=== PATIENT | male | born 1960 | race Two or more races ===

== ENCOUNTER → 2019-04-26 | Outpatient (CLI) | payer OTHER | END | disposition home or self-care (01) | LOC: SPEC 21:23 | DX: L02.31 Cutaneous abscess of buttock (principal) | CPT/HCPCS: 36415; 80202 ==

== ENCOUNTER → 2019-04-26 | Outpatient (CLI) | payer OTHER ==
[2019-04-26 03:12] LABS: BASO # 0.1 x10^3/uL (0.0-0.2); BASO % 1 % (0-3); EOS # 0.5 x10^3/uL (0.0-0.7); EOS % 5 % (0-3); HEMATOCRIT 42.6 % (39.0-53.0); LYMPH # 2.4 x10^3/uL (1.0-4.8); LYMPH % 24 % (24-48); MEAN CORPUSCULAR HEMOGLOBIN 27 pg (25-35); MEAN CORPUSCULAR HGB CONC 33 g/dL (31-37); MEAN CORPUSCULAR VOLUME 84 fL (79-100); MONO # 0.8 x10^3/uL (0.0-1.1); MONO % 8 % (0-9); NEUT # 6.3 x10^3uL (1.8-7.7); NEUT % 63 % (31-73); PLATELET COUNT 481 x10^3/uL (140-400); RED CELL DISTRIBUTION WIDTH 14.1 % (11.5-14.5)
[2019-04-26 03:18] LABS: ALBUMIN 3.1 g/dL (3.4-5.0); ALBUMIN/GLOBULIN RATIO 0.8 (1.0-1.7); ALK PHOS 133 U/L (46-116); ALT (SGPT) 28 U/L (16-63); BLOOD UREA NITROGEN 18 mg/dL (8-26); BUN/CREATININE RATIO 18 (6-20); CALCIUM 8.8 mg/dL (8.5-10.1); GFR 77.3; GLUCOSE 113 mg/dL (70-99); TOTAL BILIRUBIN 0.3 mg/dL (0.2-1.0)
[2019-04-26 03:19] LABS: ANION GAP 11 (6-14); AST (SGOT) 20 U/L (15-37); CARBON DIOXIDE 25 mmol/L (21-32); CHLORIDE 101 mmol/L (98-107); GAMMA GLUTAMYL TRANSPEPTIDASE 168 U/L (10-85); LACTATE DEHYDROGENASE 167 U/L (85-227); PHOSPHORUS 3.8 mg/dL (2.6-4.7); POTASSIUM 4.5 mmol/L (3.5-5.1); SODIUM 137 mmol/L (136-145); URIC ACID 4.7 mg/dL (3.5-7.2); VANC TR 27.1 mcg/mL (10.0-20.0)
== END | disposition home or self-care (01) ==
LOC: SPEC 02:37
DX: N17.9 Acute kidney failure, unspecified (principal)
CPT/HCPCS: 36415; 80053; 80202; 82977; 83615; 84100; 84550; 85025

== ENCOUNTER → 2019-04-29 | Outpatient (CLI) | payer OTHER ==
[2019-04-29 15:18] LABS: ANION GAP 11 (6-14); BLOOD UREA NITROGEN 14 mg/dL (8-26); BUN/CREATININE RATIO 16 (6-20); CALCIUM 8.9 mg/dL (8.5-10.1); CARBON DIOXIDE 25 mmol/L (21-32); CHLORIDE 104 mmol/L (98-107); CREATININE 0.9 mg/dL (0.7-1.3); GFR 87.3; GLUCOSE 204 mg/dL (70-99); POTASSIUM 5.2 mmol/L (3.5-5.1); SODIUM 140 mmol/L (136-145)
[2019-04-29 15:24] LABS: ALBUMIN 3.5 g/dL (3.4-5.0); ALBUMIN/GLOBULIN RATIO 0.9 (1.0-1.7); ALK PHOS 135 U/L (46-116); ALT (SGPT) 31 U/L (16-63); AST (SGOT) 19 U/L (15-37); TOTAL BILIRUBIN 0.3 mg/dL (0.2-1.0); TOTAL PROTEIN 7.4 g/dL (6.4-8.2); VANC TR 9.8 mcg/mL (10.0-20.0)
== END | disposition home or self-care (01) ==
LOC: EEVIPCON 14:48 → SPEC 14:48
PROVIDERS: ATTEND Family Medicine
DX: L02.31 Cutaneous abscess of buttock (principal)
CPT/HCPCS: 36415; 80053; 80202

== ENCOUNTER → 2019-05-02 | Outpatient (CLI) | payer OTHER ==
[2019-05-02 09:06] LABS: VANC TR 11.2 mcg/mL (10.0-20.0)
== END | disposition home or self-care (01) ==
LOC: SPEC 08:30
PROVIDERS: ATTEND Family Medicine
DX: L02.31 Cutaneous abscess of buttock (principal)
CPT/HCPCS: 36415; 80202

== ENCOUNTER → 2020-11-09 | Outpatient (CLI) | payer OTHER ==
[2020-11-09 16:07] LABS: CALCIUM 9.7 mg/dL (8.5-10.1); CREATININE 1.2 mg/dL (0.7-1.3); GFR 62.2; POTASSIUM 5.1 mmol/L (3.5-5.1)
[2020-11-09 16:08] LABS: BASO # 0.1 x10^3/uL (0.0-0.2); BASO % 0 % (0-3); EOS # 0.2 x10^3/uL (0.0-0.7); EOS % 1 % (0-3); HEMATOCRIT 42.4 % (39.0-53.0); HEMOGLOBIN 14.1 g/dL (13.0-17.5); LYMPH # 1.7 x10^3/uL (1.0-4.8); LYMPH % 12 % (24-48); MEAN CORPUSCULAR HEMOGLOBIN 28 pg (25-35); MEAN CORPUSCULAR HGB CONC 33 g/dL (31-37); MEAN CORPUSCULAR VOLUME 83 fL (79-100); MONO # 1.2 x10^3/uL (0.0-1.1); MONO % 8 % (0-9); NEUT % 79 % (31-73); PLATELET COUNT 341 x10^3/uL (140-400); WHITE BLOOD COUNT 15.2 x10^3/uL (4.0-11.0)
[2020-11-09 16:13] LABS: ALBUMIN 3.9 g/dL (3.4-5.0); ALBUMIN/GLOBULIN RATIO 1.1 (1.0-1.7); TOTAL BILIRUBIN 0.5 mg/dL (0.2-1.0); TOTAL PROTEIN 7.5 g/dL (6.4-8.2)
[2020-11-09 16:34] LABS: % LYMPHS 5 % (24-48); % MONOS 7 % (0-10); % SEGS 88 % (35-66)
[2020-11-09 16:35] LABS: PLT ESTIMATE ADEQUATE (ADEQUATE)
== END ==
LOC: SPEC 15:38
PROVIDERS: ATTEND Nurse Practitioner Family
DX: L02.212 Cutaneous abscess of back [any part, except buttock and flank] (principal)
CPT/HCPCS: 36415; 80053; 85007; 85025